=== PATIENT | female | born 1995 | race Caucasian/White ===

== ENCOUNTER 2017-11-14 11:25 | Emergency (ER) | payer OTHER, SELFPAY | END 2017-11-14 14:27 | disposition home or self-care (01) | PROVIDERS: Emergency Provider Nurse Practitioner Family; PCP Nurse Practitioner Family; Visit Provider Nurse Practitioner Family | DX: N39.0 Urinary tract infection, site not specified (principal) | CPT/HCPCS: 81001; 81003; 81015; 81025; 87077; 87086; 87186; 99058; 99282 ==

== ENCOUNTER 2018-02-05 19:21 | Emergency (ER) | payer OTHER, SELFPAY ==
[2018-02-05 19:29] VITALS: BP 134/75; PULSE 100; RESP 18; TEMP 36.7; O2SAT 99
--- NOTE | 2018-02-05 21:05 | PC.NURSE ---
Pt has signigficant hx of uti that progress to kidney infections. Pt started having sx 2 weeks ago,on antibiotics but she does not feel any better. Pt now having right flank pain. Pt states that she now has a yeast infection since taking antibiotics.
[2018-02-05 21:10] LABS: Bacteria Urine None Seen; RBC Urine None Seen (0-5/HPF); WBC Urine None Seen (0-5/HPF)
[2018-02-05 21:24] LABS: Squamous Epithelial Cell Urine 0-1 /HPF; Urine Comments Microscopic Normal
[2018-02-05 21:25] LABS: Culture Indicated Urine Cult Not Indicated
[2018-02-05 23:24] VITALS: BP 117/77; PULSE 91; O2SAT 100
[2018-02-05] MEDS: PHENAZOPYRIDINE 100 MG PREPACK 1 BOTTLE MISC (23:36)
[2018-02-05] MEDS: FLUCONAZOLE 150 MG TABLET PO (23:36)
[2018-02-05 23:42] VITALS: BP 131/83; PULSE 85
--- NOTE | 2018-02-06 02:38 | ED_ITS ---
HPI - Female Genitourinary General Chief complaint: Urogenital-Female Stated complaint: THINKS KIDNEY INFECTION Time Seen by Provider: 02/05/18 21:39 Source: patient Mode of arrival: ambulatory Limitations: no limitations History of Present Illness HPI Narrative: [facility] with a chief complaint of urinary urgency pelvic discomfort and some pelvic discharge consistent with prior episodes of yeast infection. She denies any fever or chills nor back pain. She has a history of frequent urinary tract infections and pyelonephritis. One week ago she had her typical UTI symptoms including dysuria, frequency and urgency. Additionally she had some flank pain and nausea. She was placed on Keflex for 5 days and urinary symptoms improved but patient developed some pelvic discharge consistent with prior episodes of vaginal candidiasis. She typically will get a prescription for Diflucan but was on successful in obtaining 1 on this recent visit. MD Complaint: dysuria, UTI and vaginal discharge Onset (ago): hour(s) Location: suprapubic Severity: mild Quality: Aching and Burning Duration: constant Relieving factors: none Exacerbating factors: none Urinary symptoms: Difficulty Urinating and Dysuria Vaginal discharge: white Associated symptoms: denies other symptoms Related Data Previous Rx's Medication Instructions Recorded ciprofloxacin HCl [Cipro] 500 mg PO BID 14 Days #28 tab 02/05/18 Allergies Allergy/AdvReac Type Severity Reaction Status Date / Time No Known Drug Allergies Allergy Verified 02/05/18 19:29 Review of Systems Review of Systems All systems reviewed & are unremarkable except as noted in HPI and below Constitutional Denies chills, Denies fever(s), Denies lethargy and Denies weakness Eyes Denies change in vision, Denies eye discharge, Denies irritation and Denies loss of vision ENT Ears, Nose, Mouth, and Throat: Denies change in voice, Denies neck pain and Denies sore throat Cardiovascular Denies chest pain, Denies irregular heart rhythm, Denies lightheadedness, Denies palpitations, Denies dyspnea, Denies dyspnea on exertion and Denies orthopnea Respiratory Denies cough, Denies dyspnea, Denies dyspnea on exertion and Denies wheezing Gastrointestinal Gastrointestinal: Denies abdominal pain, Denies change in bowel habits, Denies diarrhea, Denies nausea and Denies vomiting Genitourinary Denies hematuria, Reports urinary frequency, Denies flank pain, Denies urinary incontinence, Reports urinary urgency and Reports vaginal discharge Musculoskeletal Denies neck pain Integumentary/Breasts Denies pruritus, Denies erythema, Denies rash and Denies wounds Neurologic Denies confusion, Denies loss of vision and Denies weakness Psychiatric Denies anxiety, Denies confusion, Denies depression, Denies homicidal ideation and Denies suicidal ideation Endocrine Denies palpitations Hematologic/Lymphatic Denies easy bruising Allergic/Immunologic Denies wheezing PFSH Social History Smoking Status: Never smoker Exam Initial Vital Signs Initial Vital Signs: Vital Signs Temperature 98.1 F 02/05/18 19:29 Pulse Rate 100 H 02/05/18 19:29 Respiratory Rate 18 02/05/18 19:29 Blood Pressure 134/75 H 02/05/18 19:29 Pulse Oximetry 99 02/05/18 19:29 Const General: cooperative and well developed Nutritional Appearance: well nourished Orientation: alert, awake, oriented x3 and not confused Resp Effort & Inspection: normal respiratory effort, able to speak in complete sentences, no respiratory distress and no use of accessory muscles Auscultation: clear to auscultation bilaterally, no rales, no rhonchi and no wheezes GI Inspection: non-distended Palpation: soft, no hepatosplenomegaly, No guarding, No pulsatile mass and No tender Auscultation: normal bowel sounds Skin General: no rashes or lesions noted, No jaundice and No petechiae Neuro General: alert, oriented x3, gait normal and no focal motor deficits Speech: speech normal Psych Appearance: well kempt Mental Status: mental status grossly normal Attitude: cooperative Thought Content: normal and suicidality Judgment: judgment good Course Orders Ordered: ED Orders 02/05/18 19:40 Urine Microscopic Stat Discontinued Medications Fluconazole (Diflucan) 150 mg PO NOW ONE Stop: 02/05/18 23:18 Last Admin: 02/05/18 23:36 Dose: 150 mg Phenazopyridine HCl (Pyridium 100mg Prepack) 1 bottle MISC SEEINSTR ONE Stop: 02/05/18 23:18 Last Admin: 02/05/18 23:36 Dose: 1 bottle Vital Signs - 8 hr 02/05/18 19:29 02/05/18 23:24 02/05/18 23:42 Temperature 98.1 F Pulse Rate 100 H 91 H 85 Respiratory Rate 18 Blood Pressure 134/75 H 131/83 H Blood Pressure [Left Arm] 117/77 Pulse Oximetry 99 100 MDM - Female Genitourinary Lab Data Lab Results 02/05/18 Range/Units 19:40 Urine RBC None seen (0-5/HPF) Urine WBC None seen (0-5/HPF) Ur Squamous Epith Cells 0-1 /hpf Urine Bacteria None seen (None) Ur Culture Indicated? Cult not indicated Micro UA Comment Microscopic normal Discharge Plan Departure Patient Disposition: Home, Self-Care Clinical Impression: Vaginal yeast infection Discharge Date/Time: 02/05/18 23:43 Interventions: ED Discharge Assessment Last Done: 02/05/18 23:42 Activity Restrictions/Additional Instructions: *You have been diagnosed with [ vaginal candidiasis ] *What to do: *Take medications as directed *Follow up with your primary care provider in 2-3 days *Return to ER if you should have any new, worsening or concerning symptoms Prescriptions: New ciprofloxacin HCl [Cipro] 500 mg tablet 500 mg PO BID 14 Days Qty: 28 RF: 0 Stand Alone Forms: Work/School Restrictions
== END 2018-02-05 23:43 | disposition home or self-care (01) ==
PROVIDERS: Emergency Provider Emergency Medicine; Family Provider Nurse Practitioner Family; PCP Nurse Practitioner Family
DX: B37.3 Candidiasis of vulva and vagina (principal)
CPT/HCPCS: 81003; 81015; 81025; 99282; 99283

== ENCOUNTER 2018-06-03 11:10 | Emergency (ER) | payer OTHER, SELFPAY ==
[2018-06-03 11:20] VITALS: BP 138/81; PULSE 92; RESP 15; TEMP 36.7; O2SAT 100; BMI 31.6
--- NOTE | 2018-06-03 11:57 | PC.NURSE ---
Patient expresses significant stressors. patient moving, stress about boyfriends health, lots of life changes. Patient takes celexa regularly and at one point used xanax for a panic attack. Normally hesitant about medications but feels that she has reached a point with her anxiety that she might need more. patient has a psychologist she see's weekly.
--- NOTE | 2018-06-03 12:10 | ED_ITS ---
HPI - Anxiety <TREASURE Willams - Last Filed: 06/03/18 13:29> General Chief Complaint: Anxiety Stated Complaint: PANIC ATTACK Time Seen by Provider: 06/03/18 12:01 Source: patient Mode of arrival: ambulatory Limitations: no limitations History of Present Illness HPI narrative: under a lot of stress last few weeks, home life, work, and feels that her anxiety has been worse, feels anxious all the time and sometimes it gets real bad and she goes into full panic/anxiety attack, last attack was this am, and it lasted about 30 min, feels like she could use some meds to help, would like to get some xanax because she took that before on prn basis and it helped, doesn't feel too anxious currently while here complaint: anxiety Onset (ago): week(s) (2) Symptoms: chest pain and palpitations Severity: moderate Quality: intermittent History of similar episodes: Yes Provoking factors: emotional stress and work/job stress Relieving factors: medication and deep breaths Associated symptoms: shortness of breath and diaphoresis Related Data Home Medications Medication Instructions Recorded Confirmed citalopram [Celexa] 06/03/18 fluoride (sodium) [PreviDent 5000 06/03/18 Plus] levonorgestrel [Econtra One-Step] 06/03/18 norethindrone-ethin estradiol 1 tab PO DAILY 06/03/18 06/03/18 [Cyclafem 1/35 (28)] omeprazole 20 mg PO BID 06/03/18 06/03/18 Previous Rx's Medication Instructions Recorded alprazolam [Xanax] 0.5 mg PO BID-TID PRN #20 tab 06/03/18 Allergies Allergy/AdvReac Type Severity Reaction Status Date / Time No Known Drug Allergies Allergy Verified 06/03/18 11:19 Review of Systems <TREASURE Willams - Last Filed: 06/03/18 13:29> Review of Systems All systems reviewed & are unremarkable except as noted in HPI and below Constitutional Reports as per HPI, Reports system reviewed and no additional complaints, except as docu and Denies headache(s) ENT Ears, Nose, Mouth, and Throat: Denies headache(s) Cardiovascular Reports chest pain, Denies chest pain at rest, Denies chest pain with activity, Reports rapid heart rate, Denies lightheadedness and Reports dyspnea Comments: during attack only Respiratory Reports dyspnea Gastrointestinal Gastrointestinal: Denies abdominal pain, Denies diarrhea and Denies vomiting Musculoskeletal Reports system reviewed and no additional complaints, except as docu Neurologic Denies headache(s) Psychiatric Reports as per HPI, Reports anxiety, Denies depression and Reports panic attacks Exam <TREASURE Willams - Last Filed: 06/03/18 13:29> Initial Vital Signs Initial Vital Signs: Vital Signs Temperature 98.0 F 06/03/18 11:20 Pulse Rate 92 H 06/03/18 11:20 Respiratory Rate 15 06/03/18 11:20 Blood Pressure 138/81 06/03/18 11:20 Pulse Oximetry 100 06/03/18 11:20 Const General: cooperative, healthy appearing, comfortable and well developed Nutritional Appearance: average body habitus Orientation: alert, awake and oriented x3 Resp Effort & Inspection: normal respiratory effort and able to speak in complete sentences Auscultation: clear to auscultation bilaterally Cardio Rate: regular rate Rhythm: regular rhythm Heart Sounds: S1 normal and S2 normal Back/Spine/Pelvis Cervical Spine: cervical ROM normal Thoracic/Lumbar Spine: thoraco-lumbar ROM limited Skin General: no rashes or lesions noted, elasticity normal, turgor normal and warm Neuro General: alert, awake and oriented x3 Cranial Nerves: CN's II-XI intact bilaterally Cognition: normal cognition Speech: speech normal Motor: muscle tone normal throughout Sensory Exam: no sensory deficits noted Psych Appearance: grossly normal and well kempt Mental Status: mental status grossly normal Speech and Movement: speech and movement normal Mood: congruent mood Affect: normal affect Attitude: cooperative Thought Process: normal Thought Content: normal Judgment: judgment good <Lucita Mckoy DO - Last Filed: 06/03/18 17:44> Initial Vital Signs Initial Vital Signs: Vital Signs Temperature 98.0 F 06/03/18 11:20 Pulse Rate 92 H 06/03/18 11:20 Respiratory Rate 15 06/03/18 11:20 Blood Pressure 138/81 06/03/18 11:20 Pulse Oximetry 100 06/03/18 11:20 Course <JAMAAL WillamsP - Last Filed: 06/03/18 13:29> Vital Signs - 8 hr 06/03/18 11:20 06/03/18 12:30 06/03/18 12:37 Temperature 98.0 F Pulse Rate 92 H 79 73 Respiratory Rate 15 12 Blood Pressure 138/81 Blood Pressure [Right Arm] 130/77 124/49 L Pulse Oximetry 100 100 100 <Lucita Mckoy DO - Last Filed: 06/03/18 17:44> Vital Signs - 8 hr 06/03/18 11:20 06/03/18 12:30 06/03/18 12:37 Temperature 98.0 F Pulse Rate 92 H 79 73 Respiratory Rate 15 12 Blood Pressure 138/81 Blood Pressure [Right Arm] 130/77 124/49 L Pulse Oximetry 100 100 100 MDM - Anxiety <TREASURE Willams - Last Filed: 06/03/18 13:29> Differential Diagnosis Differential diagnosis: Likely hyperventilation, panic disorder and acute anxiety <Lucita Mckoy DO - Last Filed: 06/03/18 17:44> ECG Data Attestation: I personally reviewed and interpreted this ECG as follows: Prior ECG tracings: not available for review Interpretation: Sinus rhythm rate [address] changes no T-wave inversions, Q- waves noted in lead 3 and AVF, nonpathologic. Appear interval 154, QRS 89, QTC 387. Discharge Plan Departure Patient Disposition: Home Clinical Impression: Acute anxiety, Panic disorder Discharge Date/Time: 06/03/18 12:39 Interventions: ED Discharge Assessment Last Done: 06/03/18 12:38 Instructions: DI for Anxiety -- Adult Prescriptions: New alprazolam [Xanax] 0.5 mg tablet 0.5 mg PO BID-TID PRN (Reason: anxiety) Qty: 20 RF: 0 No Action citalopram [Celexa] 20 mg tablet RF: 0 omeprazole 20 mg capsule,delayed release(DR/EC) 20 mg PO BID RF: 0 norethindrone-ethin estradiol [Cyclafem (28)] 1-35 mg-mcg tablet 1 tab PO DAILY RF: 0 fluoride (sodium) [PreviDent 5000 Plus] 1.1 % cream RF: 0 levonorgestrel [Econtra One-Step] 1.5 mg tablet RF: 0 Referrals: Sally Lord, [employer] [facility] [Primary Care Provider] - (please follow up in 3-5 days) <DO Lyn Crow Last Filed: 06/03/18 17:44> Cosign ED Attending Costayature Attestation: I was immediately available in the department for consultation. Documentation has been reviewed. I agree with assessment and plan.
[2018-06-03 12:30] VITALS: BP 130/77; PULSE 79; O2SAT 100
[2018-06-03 12:37] VITALS: BP 124/49; PULSE 73; RESP 12; O2SAT 100
== END 2018-06-03 12:39 | disposition home or self-care (01) ==
PROVIDERS: Emergency Provider Nurse Practitioner; Family Provider Nurse Practitioner Family; PCP Nurse Practitioner Family
DX: F41.9 Anxiety disorder, unspecified (principal); F41.0 Panic disorder [episodic paroxysmal anxiety]
CPT/HCPCS: 93005; 99282; 99283